=== PATIENT | female | born 1950 | race Caucasian/White ===

== ENCOUNTER 2019-03-24 15:48 | Emergency (ER) | payer OTHER ==
[~2019-03-24] VITALS: Ht 160 cm; Wt 56.2 kg
[2019-03-24 16:01] VITALS: BP_SYST 162
--- NOTE | 2019-03-24 16:11 | NUR ---
BROUGHT BACK TO BED #8 AND REPORT GIVEN TO ARNULFO
--- NOTE | 2019-03-24 16:25 | NUR ---
Patient presented to ER C/O headache, blurred vision, dizziness. Patient A&Ox4, afebrile, ambulatory to ER, arrived with [id number],skin pink and warm, pain 05/20, denies N/V/D. PAtient states she had a headache today. Patient states she has history of brain tumor or brain mass.
--- NOTE | 2019-03-24 16:26 | NUR ---
ER Dr. Shaffer at bedside examining patient.
[2019-03-24] MEDS ORDERED: PROCHLORPERAZINE EDISYLATE 10 MG/2 ML VIAL IVP ONE (16:45)
[2019-03-24] MEDS ORDERED: DIPHENHYDRAMINE INJ 50 MG/ML VIAL IVP ONE (16:45)
[2019-03-24 16:58] LABS: BASOPHILS # (AUTO) 0.1 K/uL (0.0-0.2); BASOPHILS % (AUTO) 0.9 % (0.0-2.0); EOSINOPHILS # (AUTO) 0.3 K/uL (0.0-0.4); EOSINOPHILS % (AUTO) 3.8 % (0.0-4.0); HEMATOCRIT 33.8 % (36-48); HEMOGLOBIN 11.1 g/dL (12.0-16.0); LYMPHOCYTES % (AUTO) 26.6 % (20.5-51.5); MEAN CORPUSCULAR HEMOGLOBIN 31 pg (27-31); MEAN CORPUSCULAR HGB CONC 33 % (32-36); MEAN CORPUSCULAR VOLUME 94 fL (79.0-98.0); MONOCYTES # (AUTO) 0.7 K/uL (0.0-1.0); MONOCYTES % (AUTO) 8.8 % (1.7-9.3); NEUTROPHILS # (AUTO) 4.6 K/uL (1.8-7.7); NEUTROPHILS % (AUTO) 59.9 % (40.0-70.0); PLATELET COUNT (AUTO) 297 K/uL (130-430); RED BLOOD CELL COUNT(AUTO) 3.59 MIL/uL (4.2-6.2); RED CELL DISTRIBUTION WIDTH 14.6 % (9.0-15.0); WHITE BLOOD COUNT (AUTO) 7.7 K/uL (4.8-10.8)
[2019-03-24 17:14] LABS: CALCIUM 8.5 mg/dL (8.4-11.0); CREATININE 0.69 mg/dL (0.55-1.30); INR 0.9 (0.8-1.2); POTASSIUM 3.6 mmol/L (3.5-5.1); PROTHROMBIN TIME 9.3 SECS (9.5-12.5)
--- NOTE | 2019-03-24 17:20 | NUR ---
# 20 gauge angiocath placed to right AC. Use of asceptic technique. Opsite placed over site. Blood return noted. Flushed with 10 cc of normal saline. No evidence of infiltration noted. Patient tolerated well.
[2019-03-24 17:25] LABS: ALBUMIN 3.2 g/dL (3.4-4.8); TOTAL BILIRUBIN 0.2 mg/dL (0.0-1.0)
[2019-03-24 18:09] LABS: BILIRUBIN,URINE NEGATIVE (NEGATIVE); BLOOD, URINE 1+ (NEGATIVE); CLARITY/URINE CLEAR (CLEAR); COLOR,URINE YELLOW (YELLOW); GLUCOSE,URINE NEGATIVE (NEGATIVE); KETONES,URINE NEGATIVE (NEGATIVE); LEUKOCYTE ESTERASE ,URINE NEGATIVE (NEGATIVE); NITRITE, URINE NEGATIVE (NEGATIVE); PROTEIN URINE NEGATIVE (NEGATIVE); UROBILINOGEN,URINE 0.2 (0.2-1.0)
[2019-03-24 18:25] LABS: BACTERIA,URINE RARE /HPF (None Seen); RBC,URINE 0-3 /HPF (0-3); WBC,URINE NONE SEEN /HPF (0-3)
[2019-03-24 19:18] VITALS: BP_SYST 167
--- NOTE | 2019-03-24 19:20 | NUR ---
Patient given written and verbal discharge instructions and verbalizes understanding. ER MD discussed with patient the results and treatment provided. Patient in stable condition. ID arm band removed. IV catheter removed intact and dressing applied, no active bleeding. Rx of TRAMADOL given. Patient educated on pain management and to follow up with PMD. Pain Scale 0/10. Opportunity for questions provided and answered. Medication side effect fact sheet provided.
== END 2019-03-24 19:18 | disposition home or self-care (01) ==
LOC: SED 15:48
DX: C71.9 Malignant neoplasm of brain, unspecified (principal); R51 Headache; Z88.0 Allergy status to penicillin; R94.31 Abnormal electrocardiogram [ECG] [EKG]
CPT/HCPCS: 36415; 70450; 71045; 80053; 81000; 83605; 84484; 85025; 85610; 85730; 87040; 87086; 93005; 96374; 96375; 99285; J0780; J1200